=== PATIENT | female | born 1965 | race African-American/Black ===

== ENCOUNTER 2017-02-04 00:07 | Emergency (ER) | payer SELFPAY ==
[2017-02-04] MEDS ORDERED: PROVENTIL IH ONE (03:57)
--- NOTE | 2017-02-04 04:00 | Emergency Department Report ---
HPI - General Chief Complaint: Dyspnea/Respdistress Time Seen by Provider: 02/04/17 03:57 - HPI HPI: 51-year-old [place] female comes in for complaint of cough for 2 weeks. Patient reports that she saw her M.D. yesterday. She reports that she was given a steroid injection plus a flu shot. She was also started prednisone and Keflex yesterday. States tonight around midnight she began to cough continuously and got short of breath and passed out. Patient so she was passed out a few seconds. She denies any pain she has been doing albuterol nebs prior to arrival. She was recent diagnosis of bronchitis. She reports that she was given antibiotics prednisone and has been doing nebs at home prior to coming here. ED Past Medical Hx - Past Medical History Previous Medical History?: Yes Hx Hypertension: Yes Additional medical history: THYROID / BRONCHITIS - Surgical History Past Surgical History?: Yes Additional Surgical History: C SECTION X 1 - Social History Smoking Status: Never Smoker Substance Use Type: Alcohol - Medications Home Medications: Home Medications Medication Instructions Recorded Confirmed Last Taken Type ALBUTEROL NEB's [Proventil 0.083% 2.5 mg IH TID #1 box 02/04/17 Unknown Rx NEBS] ED Review of Systems ROS: Stated complaint: SHORT OF BREATH Other details as noted in HPI Physical Exam - Physical Exam Vital Signs: Vital Signs 02/04/17 00:12 Temperature 97.5 F L Pulse Rate 124 H Respiratory 26 H Rate Blood Pressure 191/117 O2 Sat by Pulse 97 Oximetry Physical Exam: GENERAL: Alert and oriented x3, no apparent distress, Normal Gait, atraumatic. HEAD: Head is normocephalic and a-traumatic. MOUTH:Mouth is well hydrated and without lesions. Tonsils nonerythematous or swollen, Uvula midline, Tongue not elevated. Mucous membranes are moist. Posterior pharynx clear, no exudate or lesions. Patent airways. NECK: Supple. Non edematous, No carotid bruits. No lymphadenopathy or thyromegaly. LUNGS: Symetrical with respiration, respiratory wheezing to the left lower and right lower lungs. HEART: S1, S2 present, tachycardia rate and rhythm without murmur, no rubs, no gallops. EXTREMITIES/MUSCULOSKELETAL: No cyanosis, clubbing, rash, lesions or edema. Full ROM bilaterally. UE/LE Pulses 2+ bilaterally. LE and UE 5+ strength bilaterally NEUROLOGIC: No focal Deficit, Cranial nerves II through XII are grossly intact. No loss of sensation, No facial droop, PSYCHIATRIC: Mood is congruent with affect, denies suicidal or homicidal ideations. SKIN: Warm and dry, No lesions, No ulceration or induration present ED Course Vital Signs 02/04/17 00:12 Temperature 97.5 F L Pulse Rate 124 H Respiratory 26 H Rate Blood Pressure 191/117 O2 Sat by Pulse 97 Oximetry - Reevaluation(s) Reevaluation #1: 02/04/17 04:36 Patient reports that she feels much better after having the neb treatment. ED Medical Decision Making - Medical Decision Making She has been evaluated by this provider fast track based on evaluation in exam order patient albuterol nebulizer 5 mg inhalation. Discussed with patient that she does not need to take the prednisone today which is and to restart on Wednesday. Discussed with patient that she needs to continue her antibiotics as prescribed and we will give her a prescription for her nebulizer. Patient verbalized understanding Critical care attestation.: If time is entered above; I have spent that time in minutes in the direct care of this critically ill patient, excluding procedure time. ED Disposition Clinical Impression: Bronchitis Disposition: DISCHARGED TO HOME OR SELFCARE Is pt being admited?: No Does the pt Need Aspirin: No Condition: Stable Instructions: Chronic Bronchitis (ED) Additional Instructions: Please take all medication as prescribed. Do not take your prednisone today which is . And start back up on Wednesday. He can usually her nebulizer machine every 8 hours as needed for shortness of breath and cough. If her symptoms persist or gets worse please follow-up with your primary care provider. Prescriptions: ALBUTEROL NEB's [Proventil 0.083% NEBS] 2.5 mg IH TID #1 box Referrals: your,provider [Other] - 3-5 Days Forms: Accompanied Note, Work/School Release Form(ED)
[2017-02-04 04:47] VITALS: BP 123/81
== END 2017-02-04 04:57 | disposition home or self-care (01) ==
LOC: ED 00:07
DX: J40 Bronchitis, not specified as acute or chronic (principal); I10 Essential (primary) hypertension; Z88.0 Allergy status to penicillin
CPT/HCPCS: 94640

== ENCOUNTER 2018-08-18 17:05 | Outpatient (CLI) | payer SELFPAY ==
--- NOTE | 2018-08-19 13:48 | Mammography Report ---
BILATERAL DIGITAL SCREENING MAMMOGRAM with CAD: 08/18/18 17:05:00 CLINICAL: Routine screening. COMPARISON:None. FINDINGS: The breasts are heterogeneously dense, which may obscure small masses. A left asymmetry on the CC view requires additional imaging.No architectural distortion or suspicious calcifications.The right breast is negative. IMPRESSION: Left asymmetry requiring further workup. BI-RADS CATEGORY: 0 -- Additional Imaging Evaluation Required RECOMMENDATION: Recall for left mediolateral and spot magnification CC views and left breast ultrasound if needed. ACR BI-RADS MAMMOGRAPHIC CODES: 0 = Needs additional imaging evaluation; 1 = Negative; 2 = Benign; 3 = Probably benign; 4 = Suspicious; 5 = Malignant; 6 = Known biopsy-proven malignancy COMMENT: 1. Dense breast tissue, i.e., adenosis, fibrocystic changes, etc., may obscure an underlying neoplasm. 2. Approximately 10% of cancers are not detected with mammography. 3. A negative mammography report should not delay biopsy if a clinically suspicious mass is present. COMMENT: Patient follow-up letters are generated via our [employer] application.
== END 2018-08-18 17:06 | disposition home or self-care (01) ==
LOC: SPVWC 17:05
DX: Z12.31 Encounter for screening mammogram for malignant neoplasm of breast (principal); I10 Essential (primary) hypertension
CPT/HCPCS: 77067